=== PATIENT | male | born 2000 | race Caucasian/White ===

== ENCOUNTER 2023-03-24 05:39 | Emergency (ER) | payer OTHER, SELFPAY ==
[2023-03-24] VITALS (10 sets, daily range): BP systolic 111–134; BP diastolic 66–84; PULSE 50–79; RESP 18; TEMP 36.7; O2SAT 86–100; BMI 25.8
--- NOTE | 2023-03-24 05:48 | ED.GENADULT ---
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 It began at approximately 5:30 p.m. last night described as periumbilical, burning stabbing pain that eventually subsided enough that he was able to get to sleep. He was woken from sleep 2:00 a.m. with worsening pain now slightly below the umbilicus. Nauseated but no vomiting. No diarrhea. No headaches or fevers. 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 He does note that his pain is somewhat alleviated by sitting and folding forward slightly. He is never had similar findings. Related Data Previous Rx's Medication Instructions Recorded hydrocodone 5 mg-acetaminophen 325 1 tab PO Q6H PRN pain #10 tabs 03/24/23 mg tablet ondansetron 4 mg disintegrating 4 mg PO Q8H PRN nausea and 03/24/23 tablet vomiting #10 tabs Allergies Allergy/AdvReac Type Severity Reaction Status Date / Time No Known Drug Allergies Allergy Verified 03/24/23 06:21 Review of Systems <Kellee Ferrera MD - Last Filed: 03/25/23 04:10> Review of Systems Narrative: Pertinent positive and negative findings as per HPI Exam <Kellee Ferrera MD - Last Filed: 03/25/23 04:10> Initial Vital Signs Initial Vital Signs: Vital Signs Temperature 98.0 F 03/24/23 05:44 Pulse Rate 66 03/24/23 05:44 Respiratory Rate 18 03/24/23 05:44 Blood Pressure 134/66 03/24/23 05:44 Pulse Oximetry 100 03/24/23 05:44 Oxygen Delivery Method Room Air 03/24/23 05:44 General: Healthy appearing, in no acute distress. Able to give a complete and coherent history. Well-nourished well-developed HEENT: Moist mucous membranes, normal sclera with reactive pupils, Respiratory: Lungs are clear to auscultation, no wheezing no rales no rhonchi. Full and symmetrical air movement Cardiac: Regular rate and rhythm no murmurs no bruits Abdomen: Soft, moderate tenderness periumbilical and radiating down into the pelvis both right and lower quadrants. No rebound or guarding, no flank pain Skin: Slightly pale but otherwise Warm and dry, no rashes Neurologic: Grossly neurologically intact with no obvious asymmetries or abnormalities Extremities: No trauma, well perfused Psych: Cooperative, appropriate insight and affect <Marzena Joshi DO - Last Filed: 03/24/23 09:27> Initial Vital Signs Initial Vital Signs: Vital Signs Temperature 98.0 F 03/24/23 05:44 Pulse Rate 66 03/24/23 05:44 Respiratory Rate 18 03/24/23 05:44 Blood Pressure 134/66 03/24/23 05:44 Pulse Oximetry 100 03/24/23 05:44 Oxygen Delivery Method Room Air 03/24/23 05:44 Course <Kellee Ferrera MD - Last Filed: 03/25/23 04:10> Orders Ordered: Discontinued Medications Hydromorphone HCl (Hydromorphone 0.5 Mg Inj) 0.5 mg IV Q15MIN PRN PRN Reason: Pain, Last Admin: 03/24/23 06:54 Dose: 0.5 mg Documented By: Admin: 03/24/23 06:08 Dose: 0.5 mg Documented By: SHOAIB Sodium Chloride (Normal Saline 0.9%) 1,000 mls @ 1,000 mls/hr IV BOLUS ONE Stop: 03/24/23 06:49 Last Infusion: 03/24/23 06:53 Dose: Infused Documented By: Admin: 03/24/23 06:07 Dose: 1,000 mls/hr Documented By: SHOAIB Ondansetron HCl (Ondansetron 4 Mg/2 Ml Inj) 4 mg IV NOW ONE Stop: 03/24/23 05:51 Last Admin: 03/24/23 06:08 Dose: 4 mg Documented By: SHOAIB Vital Signs Vital signs: Vital Signs - 8 hr 03/24/23 05:44 03/24/23 06:11 03/24/23 06:12 Temperature 98.0 F Pulse Rate 66 74 Respiratory Rate 18 Blood Pressure 134/66 127/72 Pulse Oximetry 100 100 Oxygen Delivery Method Room Air 03/24/23 06:12 03/24/23 06:30 03/24/23 06:30 Temperature Pulse Rate 74 50 L Respiratory Rate Blood Pressure 111/84 Pulse Oximetry 99 97 Oxygen Delivery Method 03/24/23 07:04 Temperature Pulse Rate 79 Respiratory Rate Blood Pressure Pulse Oximetry 86 L Oxygen Delivery Method <Marzena Joshi DO - Last Filed: 03/24/23 09:27> Orders Ordered: Discontinued Medications Hydromorphone HCl (Hydromorphone 0.5 Mg Inj) 0.5 mg IV Q15MIN PRN PRN Reason: Pain, Last Admin: 03/24/23 06:54 Dose: 0.5 mg Documented By: Admin: 03/24/23 06:08 Dose: 0.5 mg Documented By: SHOAIB Sodium Chloride (Normal Saline 0.9%) 1,000 mls @ 1,000 mls/hr IV BOLUS ONE Stop: 03/24/23 06:49 Last Infusion: 03/24/23 06:53 Dose: Infused Documented By: Admin: 03/24/23 06:07 Dose: 1,000 mls/hr Documented By: SHOAIB Ondansetron HCl (Ondansetron 4 Mg/2 Ml Inj) 4 mg IV NOW ONE Stop: 03/24/23 05:51 Last Admin: 03/24/23 06:08 Dose: 4 mg Documented By: SHOAIB Vital Signs Vital signs: Vital Signs - 8 hr 03/24/23 05:44 03/24/23 06:11 03/24/23 06:12 Temperature 98.0 F Pulse Rate 66 74 Respiratory Rate 18 Blood Pressure 134/66 127/72 Pulse Oximetry 100 100 Oxygen Delivery Method Room Air 03/24/23 06:12 03/24/23 06:30 03/24/23 06:30 Temperature Pulse Rate 74 50 L Respiratory Rate Blood Pressure 111/84 Pulse Oximetry 99 97 Oxygen Delivery Method 03/24/23 07:04 Temperature Pulse Rate 79 Respiratory Rate Blood Pressure Pulse Oximetry 86 L Oxygen Delivery Method Medical Decision Making <Kellee Ferrera MD - Last Filed: 03/25/23 04:10> Lab Data 03/24/23 06:01 03/24/23 06:01 Labs: Lab Results 03/24/23 Range/Units 06:01 WBC 6.6 (4.5-11.0) X10^3/uL RBC 5.17 (4.5-5.9) X10^6/uL Hgb 16.4 (13.5-17.5) g/dL Hct 46.2 (41-53) % MCV 89.4 (80-100) fL MCH 31.7 (26-34) PG MCHC 35.4 (30-36) % RDW 12.8 (11.6-14.8) % Plt Count 304 (150-400) X10^3/uL Neut % (Auto) 71.1 (50-75) % Lymph % (Auto) 24.3 L (25-40) % [place] % (Auto) 3.8 (3-14) % Eos % (Auto) 0.5 L (2-4) % Baso % (Auto) 0.3 (0-2) % Neut # (Auto) 4700 (6219-6655) /uL Lymph # (Auto) 1600 (6646-0068) /uL [place] # (Auto) 300 (0-900) /uL Eos # (Auto) 0 (0-450) /uL Baso # (Auto) 0 (0-100) /uL Sodium 135 L (137-145) mmol/L Potassium 3.7 (3.4-5.1) mmol/L Chloride 104 (98-107) mmol/L Carbon Dioxide 22 (22-32) mmol/L BUN 13 (9-20) mg/dL Creatinine 0.62 L (0.66-1.25) mg/dL Estimated GFR > 60 (>60) mL/min BUN/Creatinine Ratio 21.0 (6-22) Glucose 120 H (70-100) mg/dL Calcium 10.0 (8.4-10.2) mg/dL Total Bilirubin 0.7 (0.2-1.3) mg/dL AST 28 (17-59) IU/L ALT 27 (<50) IU/L Alkaline Phosphatase 27 L (38-126) U/L Total Protein 8.1 (6.3-8.2) g/dL Albumin 4.9 (3.5-5.0) g/dL Globulin 3.2 (1.7-4.1) g/dL Albumin/Globulin Ratio 1.5 (1.0-2.8) Lipase 59 (23-300) U/L Urine Dip Bedside Urine Glucose Negative Bedside Urine Bilirubin - Negative Bedside Urine Ketone - Negative Urine Specific [place] 1.025 Bedside Urine Occult Blood - Negative Bedside Urine pH 6.0 Bedside Urine Protein - Negative Bedside Urine Urobilinogen - Negative Bedside Urine Nitrite - Negative Bedside Urine Leukocytes - Negative Esterase Point of care testing: Urine Dip Bedside Urine Glucose Negative Bedside Urine Bilirubin - Negative Bedside Urine Ketone - Negative Urine Specific [place] 1.025 Bedside Urine Occult Blood - Negative Bedside Urine pH 6.0 Bedside Urine Protein - Negative Bedside Urine Urobilinogen - Negative Bedside Urine Nitrite - Negative Bedside Urine Leukocytes - Negative Esterase MDM Narrative Medical decision making narrative: CC: Acute periumbilical pain Data collected from: patient, Differential considered: Viral syndrome, appendicitis, bowel obstruction, adverse reaction to typhoid vaccine (according to vaccine literature there are case reports of abdominal pain, flu-like symptoms, jejunal perforation) Exam documented above, pertinent findings include: Moderate abdominal tenderness periumbilical now increasing in the pelvic area right and left lower quadrants without flank tenderness Lab Test results independently reviewed as above. Pertinent findings: CBC is unremarkable with white count at 6.6 Chemistries are reassuring Lipase is within normal limits Imaging studies independently reviewed: No appendicitis, no acute findings to explain his severe abdominal pain Treatments: IV fluids, parenteral narcotics and ondansetron. Discussion: Dr. Joshi-patient signed out to me by Dr. Ferrera I have seen evaluated patient myself. He had intense epigastric pain now across all lower abdomen no specifically localized tenderness. CT does not show any abnormality. Blood work is overall reassuring no leukocytosis or electrolyte abnormality. Pain is controlled. At time unclear etiology. Discussed warning signs and when to come back. He is worried about intense pain home. Will give him some Zofran and narcotic medication. <Marzena Joshi, DO - Last Filed: 03/24/23 09:27> Lab Data Labs: Lab Results 03/24/23 Range/Units 06:01 WBC 6.6 (4.5-11.0) X10^3/uL RBC 5.17 (4.5-5.9) X10^6/uL Hgb 16.4 (13.5-17.5) g/dL Hct 46.2 (41-53) % MCV 89.4 (80-100) fL MCH 31.7 (26-34) PG MCHC 35.4 (30-36) % RDW 12.8 (11.6-14.8) % Plt Count 304 (150-400) X10^3/uL Neut % (Auto) 71.1 (50-75) % Lymph % (Auto) 24.3 L (25-40) % [place] % (Auto) 3.8 (3-14) % Eos % (Auto) 0.5 L (2-4) % Baso % (Auto) 0.3 (0-2) % Neut # (Auto) 4700 (2076-6311) /uL Lymph # (Auto) 1600 (1516-7032) /uL [place] # (Auto) 300 (0-900) /uL Eos # (Auto) 0 (0-450) /uL Baso # (Auto) 0 (0-100) /uL Sodium 135 L (137-145) mmol/L Potassium 3.7 (3.4-5.1) mmol/L Chloride 104 (98-107) mmol/L Carbon Dioxide 22 (22-32) mmol/L BUN 13 (9-20) mg/dL Creatinine 0.62 L (0.66-1.25) mg/dL Estimated GFR > 60 (>60) mL/min BUN/Creatinine Ratio 21.0 (6-22) Glucose 120 H (70-100) mg/dL Calcium 10.0 (8.4-10.2) mg/dL Total Bilirubin 0.7 (0.2-1.3) mg/dL AST 28 (17-59) IU/L ALT 27 (<50) IU/L Alkaline Phosphatase 27 L (38-126) U/L Total Protein 8.1 (6.3-8.2) g/dL Albumin 4.9 (3.5-5.0) g/dL Globulin 3.2 (1.7-4.1) g/dL Albumin/Globulin Ratio 1.5 (1.0-2.8) Lipase 59 (23-300) U/L Urine Dip Bedside Urine Glucose Negative Bedside Urine Bilirubin - Negative Bedside Urine Ketone - Negative Urine Specific [place] 1.025 Bedside Urine Occult Blood - Negative Bedside Urine pH 6.0 Bedside Urine Protein - Negative Bedside Urine Urobilinogen - Negative Bedside Urine Nitrite - Negative Bedside Urine Leukocytes - Negative Esterase Point of care testing: Urine Dip Bedside Urine Glucose Negative Bedside Urine Bilirubin - Negative Bedside Urine Ketone - Negative Urine Specific [place] 1.025 Bedside Urine Occult Blood - Negative Bedside Urine pH 6.0 Bedside Urine Protein - Negative Bedside Urine Urobilinogen - Negative Bedside Urine Nitrite - Negative Bedside Urine Leukocytes - Negative Esterase Imaging Data CT scan - abdomen/pelvis: Radiologist's Impression: Preliminary report radiopaque gallstones normal appendix bowel demonstrates pattern. No renal disease or evidence obstructive uropathy bladder is decompressed MDM Narrative Medical decision making narrative: CC: Acute periumbilical pain Data collected from: patient, Differential considered: Viral syndrome, appendicitis, bowel obstruction, adverse reaction to typhoid vaccine (according to vaccine literature there are case reports of abdominal pain, flu-like symptoms, jejunal perforation) Exam documented above, pertinent findings include: Moderate abdominal tenderness periumbilical now increasing in the pelvic area right and left lower quadrants without flank tenderness Lab Test results independently reviewed as above. Pertinent findings: CBC is unremarkable with white count at 6.6 Chemistries are reassuring Lipase is within normal limits Imaging studies independently reviewed: Consultations: Treatments: IV fluids, parenteral narcotics and ondansetron. Re-evaluations: Discussion: Dr. Joshi-patient signed out to me by Dr. Ferrera I have seen evaluated patient myself. He had intense epigastric pain now across all lower abdomen no specifically localized tenderness. CT does not show any abnormality. Blood work is overall reassuring no leukocytosis or electrolyte abnormality. Pain is controlled. At time unclear etiology. Discussed warning signs and when to come back. He is worried about intense pain home. Will give him some Zofran and narcotic medication. Discharge Plan Departure Patient Disposition: Home Clinical Impression: Abdominal pain Instructions: DI for Abdominal Pain-Adult Activity Restrictions/Additional Instructions: *You have been diagnosed with abdominal pain *What to do: At this time your CAT scan and blood work overall reassuring. Please continue to monitor. Stay hydrated, eat as tolerated *Continue to take medications as directed [place] 1 tablet every 6 hours only if needed for very severe pain Motrin 600 mg every 6 hours if needed for adek-it-oemfgxhy pain Zofran 4 mg every 8 hours if needed for nausea or vomiting *Follow up with your primary care provider in 2-3 days or call [phone] *Return to ER if you should have increasing pain nausea or any new, worsening or concerning symptoms CONTROLLED SUBSTANCE DISCHARGE (Narcotoic/benzodiazepine/Flexeril/Phenergan) 1. You have been prescribed narcotic medications, it does have acetaminophen/Tylenol/paracetamol in it, DO NOT TAKE MORE THAN 4,00mg in 24 hours of Tylenol. TRAMADOL DOES NOT CONTAIN TYLENOL 2. Please understand that we cannot provide further refills of narcotics, benzodiazepines or controlled substances through the ED and her pain management will need to be through your provider. 3. While on these medications you cannot drive or operate heavy machinery. 4. You cannot sign legal documents or perform any duties such as this. 5. As long as you're taking opiate pain medications he should also be taking a stool softener such as Colace, Dulcolax, MiraLAX or prune juice, to help avoid constipation. Prescriptions: New hydrocodone-acetaminophen 5-325 mg tablet 1 tab PO Q6H PRN (Reason: pain) Qty: 10 0RF ondansetron 4 mg tablet,disintegrating 4 mg PO Q8H PRN (Reason: nausea and vomiting) Qty: 10 0RF Stand Alone Forms: Patient Portal/API
[2023-03-24] MEDS: SODIUM CHLORIDE 0.9% 1,000 ML 1000 ML IV (06:07)
[2023-03-24] MEDS: HYDROMORPHONE 0.5 MG INJ IV ×2 (06:08→06:54)
[2023-03-24] MEDS: ONDANSETRON 4 MG/2 ML INJ IV (06:08)
[2023-03-24 06:13] LABS: Add Manual Diff / Slide Review NO; Basophils Absolute Auto 0 /uL (0-100); Basophils Percent Auto 0.3 % (0-2); Eosinophils Absolute Auto 0 /uL (0-450); Eosinophils Percent Auto 0.5 % (2-4); Hematocrit 46.2 % (41-53); Hemoglobin 16.4 g/dL (13.5-17.5); Lymphocytes Absolute Auto 1600 /uL (1100-4500); Lymphocytes Percent Auto 24.3 % (25-40); Mean Corpuscular HGB Conc 35.4 % (30-36); Mean Corpuscular Hemoglobin 31.7 PG (26-34); Mean Corpuscular Volume 89.4 fL (80-100); Monocytes Absolute Auto 300 /uL (0-900); Monocytes Percent Auto 3.8 % (3-14); Neutrophils Absolute Auto 4700 /uL (1500-7000); Neutrophils Percent Auto 71.1 % (50-75); Platelet Count 304 X10^3/uL (150-400); Red Blood Cell Count 5.17 X10^6/uL (4.5-5.9); Red Cell Distribution Width 12.8 % (11.6-14.8); White Blood Cell Count 6.6 X10^3/uL (4.5-11.0)
[2023-03-24 06:22] LABS: Alanine Aminotransferase 27 IU/L (<50); Albumin 4.9 g/dL (3.5-5.0); Albumin Globulin Ratio 1.5 (1.0-2.8); Alkaline Phosphatase 27 U/L (38-126); Aspartate Aminotransferase 28 IU/L (17-59); Bilirubin Total 0.7 mg/dL (0.2-1.3); Blood Urea Nitrogen 13 mg/dL (9-20); Carbon Dioxide 22 mmol/L (22-32); Chloride 104 mmol/L (98-107); Estimated Glomerular Filt Rate > 60 mL/min (>60); Globulin 3.2 g/dL (1.7-4.1); Glucose 120 mg/dL (70-100); HEMOLYSIS 15 (0-50); Lipase 59 U/L (23-300); Potassium 3.7 mmol/L (3.4-5.1); Sodium 135 mmol/L (137-145); Total Protein 8.1 g/dL (6.3-8.2)
--- NOTE | 2023-03-24 06:39 | DI.CT.S_ITS ---
PROCEDURE: CT ABDOMEN PELVIS W CON INDICATIONS: acute lower abd pain, ? appy TECHNIQUE: After the administration of IV contrast, axial sections were acquired from the lung bases to the pubic symphysis. Coronal and sagittal reformats were performed. For radiation dose reduction, the following was used: automated exposure control, adjustment of mA and/or kV according to patient size. COMPARISON: None. FINDINGS: Image quality: Excellent. Lung bases: Unremarkable. Heart: No significant findings. ABDOMEN: Liver: No solid mass. Gallbladder: No radiopaque gallstones or wall thickening. Biliary ducts: No biliary dilation. Pancreas: No ductal dilation. Spleen: Size is within normal limits. Adrenal Glands: No adrenal nodules. Kidneys and Ureters: No hydronephrosis. No solid mass. No complex renal cystic lesion which requires follow up. Stomach and Bowel: In this patient with this given history, scrutiny is given to the appendix. The appearance is well seen and is normal, as on series 2 images 68 and 67. No focal right lower quadrant inflammatory changes are seen. No dilated loops of small bowel are seen. Normal colonic caliber, without significant wall thickening. Peritoneum: No abnormal intraperitoneal fluid. No free air. Ventral Wall: No hernia. Abdominal Nodes: No retroperitoneal or mesenteric adenopathy by size criteria. Vessels: Aorta and inferior vena cava are normal in size. PELVIS: Pelvic Organs: Unremarkable. Bladder: Decompressed, which limits its evaluation. Pelvic Nodes: No enlarged lymph nodes. Miscellaneous: No inguinal hernias are seen. Bones: Unremarkable. IMPRESSION: Normal appendix. No focal right lower quadrant inflammatory changes are seen. Nonobstructive bowel gas pattern. Note: No significant discrepancy from the preliminary report. Dictated by: Norman Mckeon M.D. on 03/24/2023 at 8:09 Approved by: Norman Mckeon M.D. on 03/24/2023 at 8:12
== END 2023-03-24 09:22 | disposition home or self-care (01) ==
PROVIDERS: Emergency Medicine; Emergency Provider Emergency Medicine
DX: R10.13 Epigastric pain (principal); R10.30 Lower abdominal pain, unspecified
CPT/HCPCS: 36415; 74177; 80053; 81003; 83690; 85025; 96361; 96374; 96375; 99284; J1170; J2405; Q9967